=== PATIENT | female | born 1980 | race Hispanic/Latino ===

== ENCOUNTER → 2017-08-17 | Outpatient (CLI) | payer OTHER ==
--- NOTE | 2017-08-17 15:47 | Diagnostic Imaging Report ---
PROCEDURE: US THYROID COMPARISON: None. INDICATIONS:THYROID NODULE TECHNIQUE: Transverse and longitudinal campbell-scale sonographic images of the thyroid were obtained and supplemented with color Doppler. FINDINGS: Echotexture, normal. Vascularity: Normal. Right thyroid lobe: Measures 1.3 x 1.0 x 4.0 cm Left thyroid lobe: Measures 0.8 x 1.5 x 4.1 cm Isthmus: Measures 0.2 cm Nodules: Right lobe: None Left lobe: None Isthmus: Solid, hypoechoic, well-defined nodule to the left of midline measures 5 x 9 x 9 mm. No calcifications. Lymph nodes: No lymphadenopathy. CONCLUSION: Solid noncalcified nodule in the isthmus (thyroid RADS 4). This is too small for biopsy. Followup ultrasound should be performed in 1, 2, 3, and 5 years to confirm stability. Dictated by: Jorge Bob M.D. on 08/17/2017 at 15:47 Electronically approved by: Jorge Bob M.D. on 08/17/2017 at 15:47
== END ==
LOC: US 11:29
PROVIDERS: ATTEND Family Medicine
DX: E04.1 Nontoxic single thyroid nodule (principal)
CPT/HCPCS: 76536